=== PATIENT | female | born 1960 | race Caucasian/White ===

== ENCOUNTER → 2021-03-03 | Outpatient (CLI) | payer BC ==
[~2021-03-03] MED LIST: CATHETER FLUSH 10 ML SYR IV PRN
[2021-03-03 08:08] VITALS: BP 161/90
== END ==
LOC: CARD 07:00
PROVIDERS: ATTEND Nurse Practitioner Family
DX: R07.89 Other chest pain (principal)
CPT/HCPCS: 78452; 93017; A9502